=== PATIENT | female | born 1980 ===

== ENCOUNTER 2017-01-19 09:34 | Emergency (ER) | payer MEDICAID ==
[2017-01-19 09:38] VITALS: BMI 28.8
[2017-01-19 10:09] VITALS: TEMP 99.4
--- NOTE | 2017-01-19 10:16 | C.PDOC ---
History Of Present Illness 36 y/o female presents to ED with complaints of headache with associated nausea for 3 days. Patient describes pain as throbbing 7/10 and states she has taken Tylenol with no relief. Patient reports chills and denies neck pain, photophobia , vision changes, numbness or any other complaints at this time. Chief Complaint (Nursing): GI Problem History Per: Patient History/Exam Limitations: no limitations Onset/Duration Of Symptoms: Days Current Symptoms Are (Timing): Still Present Quality: Other (Throbbing) Preceeding Symptoms: None Associated Symptoms: Nausea. denies: Photophobia, Blurred Vision Past Medical History Reviewed: Historical Data, Nursing Documentation, Vital Signs Vital Signs: Last Vital Signs Temp 99.4 F 01/19/17 09:48 Pulse 81 01/19/17 14:57 Resp 18 01/19/17 14:57 BP 127/79 01/19/17 14:57 Pulse Ox 99 01/19/17 14:57 Surgical History: No Surg Hx Family History: States: No Known Family Hx - Social History Hx Alcohol Use: No Hx Substance Use: No - Immunization History Hx Tetanus Toxoid Vaccination: No Hx Influenza Vaccination: No Hx Pneumococcal Vaccination: No Review Of Systems Constitutional: Negative for: Fever, Chills Eyes: Negative for: Vision Change Gastrointestinal: Positive for: Nausea Skin: Negative for: Rash Neurological: Positive for: Headache. Negative for: Weakness, Numbness Physical Exam - Physical Exam Appears: Non-toxic, No Acute Distress Skin: Warm, Dry, No Rash Head: Atraumatic, Normacephalic Eye(s): bilateral: Normal Inspection, PERRL, EOMI Oral Mucosa: Moist Neck: Normal ROM, Supple Chest: Symmetrical Cardiovascular: Rhythm Regular Respiratory: Normal Breath Sounds, No Rales, No Rhonchi, No Wheezing Gastrointestinal/Abdominal: Soft, No Tenderness, No Guarding, No Rebound Extremity: Normal ROM, Capillary Refill (<2 seconds) Neurological/Psych: Oriented x3, Normal Speech, Normal Cognition, Normal Cranial Nerves, Normal Motor, Normal Sensation ED Course And Treatment - Laboratory Results Result Diagrams: 01/19/17 11:00 01/19/17 11:00 O2 Sat by Pulse Oximetry: 97 (RA) Pulse Ox Interpretation: Normal Medical Decision Making Medical Decision Making: Impression: Muscle tension headache Plan: Toradol Disposition - Disposition Referrals: [facility] [Outside] Disposition: HOME/ ROUTINE Disposition Time: 18:08 Condition: GOOD Prescriptions: Acetaminophen/Butalbital/Caf [Fioricet] 1 tab PO QID PRN #10 tab PRN Reason: Pain, Mild (1-3) Instructions: Diabetes Mellitus Type 2 in Adults (ED), Acute Headache (ED) Forms: [employer] (Hungarian) Print Language: TAJIK - Clinical Impression Clinical Impression: Muscle tension headache, Hyperglycemia due to type 2 diabetes mellitus - Scribe Statement The provider has reviewed the documentation as recorded by the Scribricardo Coy All medical record entries made by the Jonathanibricardo were at my direction and personally dictated by me. I have reviewed the chart and agree that the record accurately reflects my personal performance of the history, physical exam, medical decision making, and the department course for this patient. I have also personally directed, reviewed, and agree with the discharge instructions and disposition.
[2017-01-19] MEDS ORDERED: Sodium Chloride 0.9% 1,000 ML IV ONE ×2 (10:24→12:47)
[2017-01-19 11:04] LABS: BASO % 0.2 % (0.0-2.0); EOS % 0.2 % (0.0-4.0); HEMATOCRIT 40.3 % (34.0-47.0); LYMPH % 11.8 % (20.0-40.0); MEAN CELL VOLUME 87.3 fL (81.0-99.0); MEAN CORPUSCULAR HEMOGLOBIN 30.2 pg (27.0-31.0); MEAN CORPUSCULAR HGB CONC 34.6 g/dL (33.0-37.0); MEAN PLATELET VOLUME 8.1 fL (7.2-11.7); MONO # 0.7 K/uL (0.0-0.8); MONO % 8.1 % (0.0-10.0); RED CELL DISTRIBUTION WIDTH 12.3 % (11.5-14.5); WHITE BLOOD COUNT 8.1 K/uL (4.8-10.8)
[2017-01-19] MEDS ORDERED: Sodium Chloride 0.9% 1,000 ML ONE ×2 (11:06→13:16)
[2017-01-19 11:08] LABS: RBC URINE 10 /hpf (0-3); URINE BILIRUBIN NEGATIVE (NEGATIVE); URINE BLOOD 2+ (NEGATIVE); URINE COLOR Yellow (YELLOW); URINE GLUCOSE (UA) 3+ mg/dL (Normal); URINE KETONE 2+ mg/dL (NEGATIVE); URINE LEUKOCYTE ESTERASE NEG Leu/uL (Negative); URINE PROTEIN 1+ mg/dL (NEGATIVE); URINE UROBILINOGEN NORMAL mg/dL (0.2-1.0); WBC URINE 7 /hpf (0-5)
[2017-01-19] MEDS ORDERED: (Novolin R) Insulin Human Regular 100 units/ml vial IV ONE ×2 (11:18→12:48)
[2017-01-19 11:29] LABS: CHLORIDE 94 mmol/L (98-107)
[2017-01-19 11:30] LABS: POTASSIUM 4.8 mmol/L (3.6-5.2); SODIUM 129 mmol/L (132-148)
[2017-01-19 11:32] LABS: ALB/GLOB RATIO 1.2 (1.0-2.1); ALKALINE PHOSPHATASE 96 U/L (38-126); AST/SGOT 12 U/L (14-36); BILIRUBIN,TOTAL 1.2 mg/dL (0.2-1.3); BLOOD UREA NITROGEN 17 mg/dL (7-17); CARBON DIOXIDE 21 mmol/L (22-30); GFR AFRICAN-AMERICAN > 60; GLUCOSE,RANDOM 297 mg/dL (65-105); TOTAL PROTEIN 7.7 g/dL (6.3-8.3)
[2017-01-19 11:33] LABS: ALT/SGPT 26 U/L (9-52)
[2017-01-19] MEDS ORDERED: (Novolin R) Insulin Human Regular 100 units/ml vial ONE ×2 (11:54→13:16)
[2017-01-19 14:58] VITALS: BP 127/79; PULSE 81; RESP 18
[2017-01-19 18:10] VITALS: O2SAT 97
== END 2017-01-19 14:58 | disposition home or self-care (01) ==
LOC: C.ER 09:34
DX: G44.209 Tension-type headache, unspecified, not intractable (principal); E11.65 Type 2 diabetes mellitus with hyperglycemia
CPT/HCPCS: 80053; 81001; 82948; 85025; 96361; 96374; 96375; 96376; 99285; J0780; J1885; J7040

== ENCOUNTER 2017-08-03 15:15 | Emergency (ER) | payer MEDICAID ==
[2017-08-03 15:15] VITALS: BMI 28.8
[2017-08-03] MEDS ORDERED: Apap-Butalbital-Caffeine 325-50-40mg Tab PO STA (16:22)
--- NOTE | 2017-08-03 16:30 | C.PDOC ---
History Of Present Illness 37 year old female presents to the emergency department with complaints of headache, body aches, diarrhea, and subjective blurred-vision in her right eye. Patient reports she has been exhibiting these symptoms for the past few days. Patient denies fever, vomiting, and abdominal pain. Time Seen by Provider: 08/03/17 16:14 Chief Complaint (Nursing): Flu-like Symptoms History Per: Patient History/Exam Limitations: no limitations Onset/Duration Of Symptoms: Days Current Symptoms Are (Timing): Still Present Location Of Pain: Diffuse Myalgias, Headache Associated Symptoms: Diarrhea. denies: Fever, Vomiting, Other (abdominal pain) Past Medical History Reviewed: Historical Data, Nursing Documentation, Vital Signs Vital Signs: Last Vital Signs Temp 99.1 F 08/03/17 18:25 Pulse 88 08/03/17 18:25 Resp 20 08/03/17 18:25 BP 142/66 08/03/17 18:25 Pulse Ox 100 08/04/17 14:48 - Medical History PMH: No Chronic Diseases Surgical History: No Surg Hx Family History: States: No Known Family Hx - Social History Hx Alcohol Use: No Hx Substance Use: No - Immunization History Hx Tetanus Toxoid Vaccination: No Hx Influenza Vaccination: No Hx Pneumococcal Vaccination: No Review Of Systems Except As Marked, All Systems Reviewed And Found Negative. Constitutional: Positive for: Malaise. Negative for: Fever Eyes: Positive for: Vision Change (subjective blurred vision in the right eye.) Gastrointestinal: Negative for: Vomiting, Abdominal Pain Neurological: Positive for: Headache Physical Exam - Physical Exam Appears: Non-toxic, No Acute Distress Skin: Warm, Dry Head: Atraumatic, Normacephalic Eye(s): bilateral: Normal Inspection, PERRL, EOMI Neck: Supple Cardiovascular: Rhythm Regular Respiratory: Normal Breath Sounds, No Rales, No Rhonchi, No Wheezing Gastrointestinal/Abdominal: Soft, No Tenderness Neurological/Psych: Oriented x3, Normal Speech, Normal Cognition ED Course And Treatment O2 Sat by Pulse Oximetry: 100 (RA) Pulse Ox Interpretation: Normal Medical Decision Making Medical Decision Making: Plan: Fioricet [address] imaging of the head. declines lab testing. signs ama ricks improved s/p fiorcet Disposition - Disposition Referrals: [facility] [Outside] [facility] [Outside] Emiliano Agudelo MD [Staff Provider] - Disposition: HOME/ ROUTINE Disposition Time: 02:00 Condition: UNKNOWN Additional Instructions: you are declining imaging and work up in the er. you should follow up with the specialist. return to er with worsening symptoms or concerns. Instructions: Headache, Child, Eyestrain, Leaving Against Medical Advice Forms: [employer] (Micronesian) - Clinical Impression Clinical Impression: Blurry vision, Headache, Left against medical advice - Scribe Statement The provider has reviewed the documentation as recorded by the Scribe (Gavin Ponce) All medical record entries made by the Scribe were at my direction and personally dictated by me. I have reviewed the chart and agree that the record accurately reflects my personal performance of the history, physical exam, medical decision making, and the department course for this patient. I have also personally directed, reviewed, and agree with the discharge instructions and disposition.
[2017-08-03] MEDS ORDERED: Apap-Butalbital-Caffeine 325-50-40mg Tab ONE (17:21)
[2017-08-03 18:29] VITALS: BP 142/66; PULSE 88; RESP 20; TEMP 99.1
[2017-08-04 14:48] VITALS: O2SAT 100
== END 2017-08-03 18:29 | disposition home or self-care (01) ==
LOC: C.ER 15:15
DX: H53.8 Other visual disturbances (principal); R51 Headache

== ENCOUNTER 2018-02-15 11:01 | Emergency (ER) | payer MEDICAID ==
[2018-02-15 11:05] VITALS: BMI 28.3
[2018-02-15 11:16] VITALS: BP 148/93; PULSE 105; RESP 18; TEMP 98; O2SAT 100
--- NOTE | 2018-02-15 11:38 | C.PDOC ---
History Of Present Illness 37 year old female presents to the ED for evaluation of lower back pain that radiates down right leg, suprapubic pain, nausea, and foul smelling urine which began around 3 days ago. Patient took Tylenol yesterday without significant relief and did not take any medication today. She reports history of urine infection in the past. She denies fever, chills, vomiting. Time Seen by Provider: 02/15/18 11:18 Chief Complaint (Nursing): Female Genitourinary History Per: Patient History/Exam Limitations: no limitations Onset/Duration Of Symptoms: Days (3) Current Symptoms Are (Timing): Still Present Quality Of Discomfort: "Pain" Associated Symptoms: Nausea, Back Pain, Urinary Symptoms. denies: Fever, Chills, Vomiting Additional History Per: Patient Abnormal Vaginal Bleeding: No Past Medical History Reviewed: Historical Data, Nursing Documentation, Vital Signs Vital Signs: Last Vital Signs Temp 98.0 F 02/15/18 11:07 Pulse 105 H 02/15/18 11:07 Resp 18 02/15/18 11:07 BP 148/93 H 02/15/18 11:07 Pulse Ox 100 02/15/18 11:07 - Medical History PMH: No Chronic Diseases Surgical History: No Surg Hx Family History: States: Unknown Family Hx - Social History Hx Alcohol Use: Yes Hx Substance Use: No - Immunization History Hx Tetanus Toxoid Vaccination: No Hx Influenza Vaccination: No Hx Pneumococcal Vaccination: No Review Of Systems Constitutional: Negative for: Fever, Chills Gastrointestinal: Positive for: Nausea, Abdominal Pain (suprapubic ). Negative for: Vomiting Genitourinary: Positive for: Other (foul smelling urine ) Musculoskeletal: Positive for: Back Pain, Leg Pain Physical Exam - Physical Exam Appears: Non-toxic, No Acute Distress Skin: Normal Color, Warm, Dry Head: Atraumatic, Normacephalic Eye(s): bilateral: Normal Inspection Chest: Symmetrical, No Deformity, No Tenderness Cardiovascular: Rhythm Regular Respiratory: Normal Breath Sounds, No Rales, No Rhonchi, No Wheezing Gastrointestinal/Abdominal: Soft, No Tenderness, No Guarding, No Rebound Back: Other (minimal flank tenderness, right>left) Extremity: Normal ROM Neurological/Psych: Oriented x3, Normal Speech, Normal Cognition ED Course And Treatment O2 Sat by Pulse Oximetry: 100 (on RA) Pulse Ox Interpretation: Normal Medical Decision Making Medical Decision Making: Impression: 37 year old female with back pain radiating to leg, suprapubic abdominal pain, nausea and foul-smelling urine Plan: * urinalysis * Motrin PO * Pyridium PO Progress: Urinalysis ordered and reviewed. Motrin PO and Pyridium PO given. UA shows UTI. Bactrim DS PO ordered. Disposition Counseled Patient/Family Regarding: Diagnosis, Need For Followup, Rx Given - Disposition Referrals: Aramis Partida MD [Medical Doctor] - Disposition: HOME/ ROUTINE Disposition Time: 12:32 Condition: STABLE Additional Instructions: Take antibiotic twice daily and be sure to finish taking all of antibiotic. Drink plenty of fluids. If urine culture was performed, call back for results in 2-3 days for results to confirm antibiotic is treating UTI well. Prescriptions: Sulfamethoxazole/Trimethoprim [Bactrim DS 800 mg-160 mg] 1 tab PO BID #14 tab Instructions: Urinary Tract Infection, Adult (DC) Forms: [employer] (Montenegrin) - POA Present On Arrival: None - Clinical Impression Clinical Impression: UTI (urinary tract infection) - PA / CONTENT SPECIALIST / Resident Statement MD/DO has reviewed & agrees with the documentation as recorded. - Scribe Statement The provider has reviewed the documentation as recorded by the Scribe (Michelle Ordonez) All medical record entries made by the Scribe were at my direction and personally dictated by me. I have reviewed the chart and agree that the record accurately reflects my personal performance of the history, physical exam, medical decision making, and the department course for this patient. I have also personally directed, reviewed, and agree with the discharge instructions and disposition.
[2018-02-15 12:11] LABS: HCG,QUALITATIVE URINE NEGATIVE (NEGATIVE)
[2018-02-15 12:13] LABS: SQUAMOUS EPITHIAL 5 /hpf (0-5); URINE BACTERIA OCC (<OCC); URINE BILIRUBIN NEGATIVE (NEGATIVE); URINE BLOOD NEGATIVE (NEGATIVE); URINE CLARITY Hazy (Clear); URINE COLOR Yellow (YELLOW); URINE GLUCOSE (UA) 3+ mg/dL (Normal); URINE LEUKOCYTE ESTERASE NEG Leu/uL (Negative); URINE PROTEIN NEGATIVE (NEGATIVE); URINE UROBILINOGEN NORMAL mg/dL (0.2-1.0)
[2018-02-15] MEDS ORDERED: Tmp-Smz 800 mg-160 mg DS Tab PO STA (12:31)
[2018-02-15] MEDS ORDERED: Tmp-Smz 800 mg-160 mg DS Tab ONE (12:43)
== END 2018-02-15 12:43 | disposition home or self-care (01) ==
LOC: C.ER 11:01
DX: N39.0 Urinary tract infection, site not specified (principal)

== ENCOUNTER 2018-02-19 11:26 | Emergency (ER) | payer MEDICAID ==
[2018-02-19 11:26] VITALS: BMI 28.3
[2018-02-19 11:32] VITALS: RESP 20; TEMP 98.5
[2018-02-19] MEDS ORDERED: Lidocaine 5% Patch TD STA (12:16)
[2018-02-19] MEDS ORDERED: Lidocaine 5% Patch TD ONE (12:20)
--- NOTE | 2018-02-19 12:54 | C.PDOC ---
History Of Present Illness 37-year-old female with a PMHx of herniated disc presents to the ED complaining of 5 day history of right-sided low back pain, radiating down the right leg. Patient reports pain is similar to prior episodes of back pain. Denies any new injury or trauma. Otherwise patient denies any numbness, tingling, extremity weakness, dysuria, fever, frequency, or urinary incontinence. Time Seen by Provider: 02/19/18 11:43 Chief Complaint (Nursing): Back Pain History Per: Patient History/Exam Limitations: no limitations Onset/Duration Of Symptoms: Days (x5) Current Symptoms Are (Timing): Still Present Previous Symptoms: Back Pain Associated Symptoms: None Past Medical History Reviewed: Historical Data, Nursing Documentation, Vital Signs Vital Signs: Last Vital Signs Temp 98.5 F 02/19/18 11:28 Pulse 99 H 02/19/18 11:28 Resp 20 02/19/18 11:28 BP 134/85 02/19/18 11:28 Pulse Ox 100 02/19/18 11:28 - Medical History PMH: Back Problems (herniated disc) Family History: States: Unknown Family Hx - Social History Hx Alcohol Use: Yes Hx Substance Use: No - Immunization History Hx Tetanus Toxoid Vaccination: No Hx Influenza Vaccination: No Hx Pneumococcal Vaccination: No Review Of Systems Constitutional: Negative for: Fever, Chills Gastrointestinal: Negative for: Abdominal Pain Genitourinary: Negative for: Dysuria, Frequency, Incontinence, Hematuria Musculoskeletal: Positive for: Back Pain, Leg Pain Neurological: Negative for: Weakness, Numbness, Incoordination Physical Exam - Physical Exam Appears: Well, Non-toxic, No Acute Distress Skin: Warm, Dry, No Rash Head: Atraumatic, Normacephalic Eye(s): bilateral: Normal Inspection Oral Mucosa: Moist Neck: Normal ROM Chest: Symmetrical Cardiovascular: Rhythm Regular, No Murmur Respiratory: Normal Breath Sounds, No Rales, No Rhonchi, No Wheezing Gastrointestinal/Abdominal: Bowel Sounds (active), Soft, No Tenderness, No Guarding Back: No Vertebral Tenderness, Paraspinal Tenderness (mild right paralumbar tenderness) Extremity: Bilateral: Atraumatic, Normal Color And Temperature, Normal ROM Neurological/Psych: Oriented x3, Normal Speech ED Course And Treatment O2 Sat by Pulse Oximetry: 100 (RA) Pulse Ox Interpretation: Normal Medical Decision Making Medical Decision Making: Impression: Sciatica Initial Plan: --Valium 5 mg PO --Motrin 600 mg PO --Lidoderm patch x1 --Reassess On re-examination, patient is resting comfortably in no acute distress. Patient reports improvement of symptoms. Patient feels comfortable going home and will be discharged. Patient given follow up instructions. Instructed to return to ER if symptoms worsen or new symptoms arise. Disposition Counseled Patient/Family Regarding: Diagnosis, Need For Followup, Rx Given - Disposition Referrals: Yazan Irizarry [Staff Provider] - Disposition: HOME/ ROUTINE Disposition Time: 12:52 Condition: STABLE Additional Instructions: You can apply heat to area Take Tylenol 500mg for any pain Take Ibuprofen as needed for pain every 6-8 hours, with food to not upset stomach Take Valium every 8 hours as needed for muscular pain and spasm, caution may cause drowsiness Prescriptions: diaZEpam [Valium] 2 mg PO Q8 #15 tab Ibuprofen [Motrin] 600 mg PO Q8 #30 tab Instructions: Sciatica (DC) Forms: [employer] (Irish), Work Excuse - POA Present On Arrival: None - Clinical Impression Clinical Impression: Sciatica - PA / SALES REPRESENTATIVE ADVERTISING / Resident Statement MD/DO has reviewed & agrees with the documentation as recorded. - Scribe Statement The provider has reviewed the documentation as recorded by the Scribricardo Dooley All medical record entries made by the Scribe were at my direction and personally dictated by me. I have reviewed the chart and agree that the record accurately reflects my personal performance of the history, physical exam, medical decision making, and the department course for this patient. I have also personally directed, reviewed, and agree with the discharge instructions and disposition.
[2018-02-19 13:01] VITALS: BP 118/80; PULSE 90
[2018-02-19 13:05] VITALS: O2SAT 100
== END 2018-02-19 13:04 | disposition home or self-care (01) ==
LOC: C.ER 11:26
DX: M54.30 Sciatica, unspecified side (principal)

== ENCOUNTER 2018-02-23 04:17 | Emergency (ER) | payer MEDICAID ==
[2018-02-23 04:17] VITALS: BMI 28.3
[2018-02-23] MEDS ORDERED: Lidocaine 5% Patch TD STA (05:45)
[2018-02-23] MEDS ORDERED: Lidocaine 5% Patch TD ONE (05:56)
--- NOTE | 2018-02-23 05:59 | C.PDOC ---
History Of Present Illness 37 year old female with a Hx of herniated discs presents to the ER with a complaint of right lower back pain that radiates to the right buttock and thigh intermittently for the past week. Patient was seen in the ER before, given motrin and valium but states it has not given much relief. Denies dysuria, hematuria, incontinence, weakness, or numbness. Time Seen by Provider: 02/23/18 04:52 Chief Complaint (Nursing): Back Pain History Per: Patient History/Exam Limitations: no limitations Onset/Duration Of Symptoms: Days, Intermittent Episodes Current Symptoms Are (Timing): Still Present Quality Of Discomfort: Unable To Describe Previous Symptoms: Other (Herniated disc) Associated Symptoms: None Exacerbating Factor(s): Nothing Recent travel outside of the [place]: No Past Medical History Reviewed: Historical Data, Nursing Documentation, Vital Signs Vital Signs: Last Vital Signs Temp 98.8 F 02/23/18 04:48 Pulse 109 H 02/23/18 04:48 Resp 20 02/23/18 04:48 BP 134/80 02/23/18 04:48 Pulse Ox 96 02/23/18 04:48 - Medical History PMH: Back Problems (herniated disc) Family History: States: Unknown Family Hx - Social History Hx Alcohol Use: Yes Hx Substance Use: No - Immunization History Hx Tetanus Toxoid Vaccination: No Hx Influenza Vaccination: No Hx Pneumococcal Vaccination: No Review Of Systems Genitourinary: Negative for: Dysuria, Incontinence, Hematuria Musculoskeletal: Positive for: Back Pain Neurological: Negative for: Weakness, Numbness Physical Exam - Physical Exam Appears: Non-toxic Skin: Normal Color, Warm, Dry Head: Atraumatic, Normacephalic Eye(s): bilateral: Normal Inspection Back: No CVA Tenderness, No Vertebral Tenderness, Paraspinal Tenderness (Right lumbar), Straight Leg Raising (Positive to right at 40 degrees) Extremity: Normal ROM (x4), Other (Chronic deformity of left hand) Neurological/Psych: Oriented x3, Normal Speech, Normal Motor, Normal Sensation Gait: Steady ED Course And Treatment O2 Sat by Pulse Oximetry: 96 (Room air) Pulse Ox Interpretation: Normal Progress Note: Toradol administered, lidoderm patch applied. Patient reports improvement of pain, she is resting comfortably in the ER in no acute distress, ambulatory with steady gait, vitals are stable, will discharge home with Rx and instructions to follow up with PMD. Disposition Counseled Patient/Family Regarding: Need For Followup, Rx Given - Disposition Referrals: [facility] [Outside] Disposition: HOME/ ROUTINE Disposition Time: 06:40 Condition: STABLE Additional Instructions: Please follow up with pMD Take medications as directed Return to ER if worse Prescriptions: Lidocaine 5% [Lidoderm] 1 ea TD DAILY #7 patch traMADol [Ultram] 50 mg PO TID #14 tab Instructions: Sciatica (DC) Forms: [employer] (Kinyarwanda) - Clinical Impression Clinical Impression: Sciatica - PA / CHEESE SPRAYER / Resident Statement MD/DO has reviewed & agrees with the documentation as recorded. - Scribe Statement The provider has reviewed the documentation as recorded by the Scribricardo Boswell All medical record entries made by the Jonathanibricardo were at my direction and personally dictated by me. I have reviewed the chart and agree that the record accurately reflects my personal performance of the history, physical exam, medical decision making, and the department course for this patient. I have also personally directed, reviewed, and agree with the discharge instructions and disposition.
[2018-02-23 06:49] VITALS: BP 115/73; PULSE 96; RESP 14; TEMP 98.2; O2SAT 98
== END 2018-02-23 06:57 | disposition home or self-care (01) ==
LOC: C.ER 04:17
DX: M54.30 Sciatica, unspecified side (principal)
CPT/HCPCS: 96372; 99284; J1885